=== PATIENT | female | born 1965 | race Caucasian/White ===

== ENCOUNTER 2017-03-31 10:04 | Emergency (ER) | payer SELFPAY ==
--- NOTE | 2017-03-31 10:34 | ERNOTE ---
Date of Service: 03/31/17 Time Seen by Provider: 03/31/17 10:13 Stated Complaint: cough, congestion Presenting Symptoms:: cough, sore throat, runny nose, fever Source: patient Exam Limitations: no limitations Immunizations: IMMUNIZATION HX Immunizations Up to Date Yes History of Influenza Vaccine No Allergies/Adverse Reactions: Allergies codeine Adverse Reaction (Intermediate, Verified 03/31/17 10:12) Vomiting Home Medications: HOME MEDICATIONS Albuterol Sulfate [Ventolin Hfa] 2 puff IH Q4H PRN #1 inhaler 03/31/17 [Last Taken Unknown] Cetirizine HCl [Zyrtec] 10 mg PO DAILY 03/31/17 [Last Taken Unknown] Ibuprofen [Motrin] 800 mg PO QID PRN 03/31/17 [Last Taken Unknown] Pseudoephedrine HCl [Sudafed 12-Hour] 1 tab PO Q12H 03/31/17 [Last Taken Unknown ] predniSONE [Prednisone] 3 tab PO DAILY #9 tab 03/31/17 [Last Taken Unknown] - History of Present Ilness Narrative: Pt. comes in with c/o sinus congestion, sore throat, fever, cough, and occasional wheezing. Pt. has a hx of exercise, allergen, and viral induced asthma but has not needed her albuterol inhaler in over a year. Pt. denies any SOB except when she is lying down at night or after coughing but states that it resolves spontaneously iun a few minutes. Pt. denies any relief using sudafed or zyrtec. Review of Systems - Review of Systems Constitutional: Present: fever, fatigue, malaise. Absent: chills, weakness EYE: Present: no symptoms reported ENT: Present: nose congestion, nasal drainage, sore throat Respiratory: Present: cough, wheezing. Absent: shortness of breath Cardiology: Present: no symptoms reported. Absent: chest pain, palpitations, edema Gastrointestinal/Abdominal: Present: no symptoms reported. Absent: nausea, vomiting, diarrhea, abdominal pain Genitourinary: Present: no symptoms reported Musculoskeletal: Present: no symptoms reported. Absent: back pain, joint pain Skin: Present: no symptoms reported. Absent: rash Neurological: Present: no symptoms reported. Absent: headache, dizziness/light- headedness, numbness, tingling All Other Systems: All systems neg except as marked - Patient's Past Medical History Patient History - Medical: No pertinent hx Patient History - Cardiac/Respiratory: Asthma, Bronchitis Patient History - Cancer: No Hx of Cancer Patient History - Surgical Procedures: Tubal Ligation Patient History - Other: None - Family History Maternal Grandmother Family History - Medical: Diabetes Type 2 - Social History Psych History: No pertinent hx Smoking Status: Never smoker Have you smoked in the past 12 months: No Alcohol Use: none Drug Use: none - Immunizations Immunizations Up to Date: Yes History of Influenza Vaccine: No Physical Exam - Physical Exam General Appearance: Present: wd/wn, alert, no apparent distress Eye Exam: Normal inspection: bilateral, PERRL: bilateral, EOMI: bilateral Ears, Nose, Throat: Present: nasal congestion, normal pharynx, pharyngeal erythema, tonsillar exudate - clear Neck: Present: normal inspection, nontender. Absent: lymphadenopathy (R), lymphadenopathy (L) Respiratory: Present: no respiratory distress, normal breath sounds, no accessory muscle use, chest nontender, lungs clear Cardiovascular/Chest: Present: regular rate, rhythm, no murmur, normal peripheral pulses Gastrointestinal/Abdominal: Present: normal bowel sounds, nontender, nondistended, soft, no organomegaly Back Exam: Present: normal inspection Extremity Exam: Present: normal inspection Neurological Exam: Present: alert, oriented, normal mood/affect, no motor/ sensory deficits Skin Exam: Present: normal color, warm/dry. Absent: pallor, skin rash ED Progress - Results and Orders Patient's Lab Results:: I have reviewed the patient's lab results. - Vital Signs Patient's Vital Signs:: I have reviewed the patient's vital signs. Vital Signs: Vital Signs 03/31/17 10:09 Temperature 36.1 C L Pulse Rate 106 H Respiratory 16 Rate Blood Pressure 149/100 O2 Sat by Pulse 99 Oximetry - Progress/Reassessment Chief Complaint: Upper Respiratory Symptoms Departure - Departure Clinical Impression: Tracheobronchitis Disposition: Home self-care Condition: Good Instructions: Acute Bronchitis, [id number] Additional Instructions: Please follow up with primary provider in 2-3 days. Please stop sudafed. May use neti pot or other saline rinse for sinus congestion. Prescriptions: Albuterol Sulfate [Ventolin Hfa] 2 puff IH Q4H PRN #1 inhaler PRN Reason: Shortness Of Breath predniSONE [Prednisone] 3 tab PO DAILY #9 tab
[2017-03-31 11:04] VITALS: BP 132/96
== END 2017-03-31 11:07 | disposition home or self-care (01) ==
LOC: ER 10:04
DX: J20.9 Acute bronchitis, unspecified (principal)